=== PATIENT | female | born 1985 | race Hispanic/Latino ===

== ENCOUNTER 2018-09-02 07:30 | Inpatient (IN) | payer MEDICARE ==
[2018-09-02 09:29] LABS: Hematocrit 39.5 % (30.3-42.9); Hemoglobin 13.7 gm/dl (10.1-14.3); Mean Corpuscular HGB Conc 35 % (30-34); Mean Corpuscular Volume 83 fl (79-97); Platelet Count 201 K/mm3 (140-440); Red Blood Count 4.76 M/mm3 (3.65-5.03); Red Cell Distribution Width 15.4 % (13.2-15.2)
[2018-09-02 10:00] LABS: INR 0.91 (0.87-1.13)
[2018-09-02 10:01] LABS: BUN/Creatinine Ratio 21; Blood Urea Nitrogen 17 mg/dL (7-17); Hemolysis Index 9; Partial Thromboplastin Time 23.6 Sec. (24.2-36.6)
--- NOTE | 2018-09-02 10:37 | Emergency Department Report ---
ED General Adult HPI - General Chief complaint: Seizure Stated complaint: SEIZURE Time Seen by Provider: 09/02/18 08:22 Source: patient, EMS (ems notes not available at time of chart dictation), RN notes reviewed, old records reviewed Mode of arrival: Stretcher Limitations: No Limitations - History of Present Illness Initial comments: This is a 33-year-old female. The patient is not known to this provider previously. Her past medical history includes type 2 diabetes, seizures, reported urinary tract infection, questionable renal disorder, bipolar type I, and is currently on a psychiatric 1013. As per review of old medical records, the patient presented to a local psychiatric facility agitated and not stating why she was there. Patient insis maxine she does not know why she is at psychiatric Hospital. There is some admission of depression, however the patient denied homicidality and suicidality. She did present with delusions, such as people possibly assaulting her, questionable leaving , and she was found to be emotionally labile. At some point, she was noted to have endorse suicidality. The patient is sent to the emergency room today for seizure versus syncope. The patient was reportedly found down, next to a toilet, for uncertain duration of time, and uncertain mechanism. As per review of old medical records, patient was recently medically cleared, started on Macrodantin, given Flagyl, for presumed BV, and was transferred to a psychiatric facility. The patient is a very poor historian. She denies headache and neck pain. She complains of chest pain, central and bilateral intermittent wheezing for the past 2 days. The chest pain is described as aching and throbbing, does not radiate anywhere. The patient denies abdominal pain. The patient denies urinary symptoms. The patient denies focal extremity weakness, numbness. She believes that she may have had a seizure yesterday. She believes that she may have had a seizure the day before. She is not sure what medications she takes. Patient is asking to go home. -: Gradual, Sudden, days(s) Location: chest Radiation: non-radiation Consistency: other Improves with: other Worsens with: other - Related Data Allergies Allergy/AdvReac Type Severity Reaction Status Date / Time No Known Allergies Allergy Unverified 09/02/18 08:43 ED Review of Systems ROS: Stated complaint: SEIZURE Other details as noted in HPI Constitutional: denies: fever Eyes: denies: eye discharge ENT: denies: epistaxis Respiratory: denies: cough Cardiovascular: chest pain, syncope (? syncope patient is not sure) Gastrointestinal: denies: abdominal pain, nausea, vomiting Genitourinary: denies: dysuria Musculoskeletal: arthralgia, myalgia Skin: denies: lesions Neurological: other (seizure). denies: weakness Psychiatric: anxiety. denies: homicidal thoughts, suicidal thoughts ED Past Medical Hx - Past Medical History Previous Medical History?: Yes Hx Seizures: Yes Hx Psychiatric Treatment: Yes - Social History Smoking Status: Never Smoker Substance Use Type: None ED Physical Exam - General Limitations: No Limitations General appearance: alert, in no apparent distress, obese - Head Head exam: Present: atraumatic, normocephalic - Eye Eye exam: Present: normal appearance, PERRL, EOMI. Absent: nystagmus - ENT ENT exam: Present: normal exam, normal orophraynx, mucous membranes moist, normal external ear exam - Neck Neck exam: Present: normal inspection, full ROM. Absent: tenderness, meningismus - Respiratory Respiratory exam: Present: normal lung sounds bilaterally, chest wall tender ness. Absent: respiratory distress - Cardiovascular Cardiovascular Exam: Present: regular rate, normal rhythm, normal heart sounds. Absent: bradycardia, tachycardia, irregular rhythm, systolic murmur, diastolic murmur, rubs, gallop - GI/Abdominal GI/Abdominal exam: Present: soft. Absent: distended, tenderness, guarding, rebound, rigid, pulsatile mass - Extremities Exam Extremities exam: Present: normal inspection, full ROM, other (2+ pulses noted in the bilateral upper, lower extremities. Compartments soft. No long bony tenderness. The pelvis is stable.). Absent: tenderness, pedal edema, joint swelling, calf tenderness - Back Exam Back exam: Present: normal inspection, full ROM. Absent: tenderness, CVA tenderness (R), CVA tenderness (L), muscle spasm, paraspinal tenderness, vertebral tenderness - Neurological Exam Neurological exam: Present: alert, oriented X3, other (Extraocular movements intact. Tongue midline. No facial droop. Facial sensation intact to light touch in the V1, V2, V3 distribution bilaterally. 5 and 5 strength in 4 extremities.. Sensation is intact to light touch in 4 extremities.). Absent: motor sensory deficit - Psychiatric Psychiatric exam: Present: anxious - Skin Skin exam: Present: warm, dry, intact, normal color. Absent: rash ED Course Vital Signs 09/02/18 09/02/18 09/02/18 08:34 10:00 11:27 Temperature 98.5 F 98.5 F Pulse Rate 72 106 H 67 Respiratory 17 18 17 Rate Blood Pressure 132/66 Blood Pressure 131/86 126/64 [Right] O2 Sat by Pulse 100 100 100 Oximetry 09/02/18 12:00 Temperature Pulse Rate 117 H Respiratory 17 Rate Blood Pressure Blood Pressure 132/93 [Right] O2 Sat by Pulse 100 Oximetry - Reevaluation(s) Reevaluation #1: 09/02/18 10:37 Differential diagnosis, including but not limited to: Intracranial injury, cervical spine injury, seizure, syncope, orthostasis, vagal event, pulmonary embolus, structural cardiac disease, medication interaction, Assessment and plan: 33-year-old female sent to the emergency room for evaluation of possible seizure versus syncope. The patient is currently afebrile with reassuring vital signs, has resolved tachycardia, and has no pulmonary embolus or DVT risk factors and she is low risk by well's criteria. Tachycardia is reviewed and appreciated, maybe secondary to anxiety. Medication reconciliation has been requested. Patient found to have subtherapeutic valproic acid level. Patient will be loaded with valproic acid, and we will also load the patient with her Lamictal. Screening laboratory studies pending at this time. Given young age, and conversant of chest wall pain for 2 days, negative troponin 1, patient at low risk for major adverse cardiac event. Reevaluation #2: 09/02/18 12:[address] scan of the brain, cervical spine negative for acute disease. Nuclear medicine study is intermediate to high probability for pulmonary embolus. Nursing team unable to obtain 20-gauge IV access necessary for angiogram acquisition. This provider has examined the patient, and has not encountered any veins suitable for 20-gauge Angiocath. Therefore, we will go the patient empirically with Lovenox, and admitted the patient to the medical service for presumed pulmonary embolus versus breakthrough seizure. The [facility] physician is paced to arrange admission Reevaluation #3: 09/02/18 13:20 Dr Lito Estrada accepts ED Medical Decision Making - Lab Data Result diagrams: 09/02/18 09:05 09/02/18 09:05 Vital Signs 09/02/18 09/02/18 08:34 10:00 Temperature 98.5 F 98.5 F Pulse Rate 72 106 H Respiratory 17 18 Rate Blood Pressure 132/66 Blood Pressure 131/86 [Right] O2 Sat by Pulse 100 100 Oximetry Lab Results 09/02/18 09/02/18 09/02/18 Range/Units 09:05 09:05 09:05 WBC 9.2 (4.5-11.0) K/mm3 RBC 4.76 (3.65-5.03) M/mm3 Hgb 13.7 (10.1-14.3) gm/dl Hct 39.5 (30.3-42.9) % MCV 83 (79-97) fl MCH 29 (28-32) pg MCHC 35 H (30-34) % RDW 15.4 H (13.2-15.2) % Plt Count 201 (140-440) K/mm3 PT 12.8 (12.2-14.9) Sec. INR 0.91 (0.87-1.13) APTT 23.6 L (24.2-36.6) Sec. D-Dimer 250.67 H (0-234) ng/mlDDU Sodium 139 (137-145) mmol/L Potassium 4.7 (3.6-5.0) mmol/L Chloride 96.5 L (98-107) mmol/L Carbon Dioxide 29 (22-30) mmol/L Anion Gap 18 mmol/L BUN 17 (7-17) mg/dL Creatinine 0.8 (0.7-1.2) mg/dL Estimated GFR > 60 ml/min BUN/Creatinine Ratio 21 % Glucose 189 H (65-100) mg/dL Calcium 9.0 (8.4-10.2) mg/dL Magnesium 1.80 (1.7-2.3) mg/dL Troponin T < 0.010 (0.00-0.029) ng/mL HCG, Quant (0-4) mIU/mL Valproic Acid (50-100) ug/mL 09/02/18 09/02/18 Range/Units 09:05 09:05 WBC (4.5-11.0) K/mm3 RBC (3.65-5.03) M/mm3 Hgb (10.1-14.3) gm/dl Hct (30.3-42.9) % MCV (79-97) fl MCH (28-32) pg MCHC (30-34) % RDW (13.2-15.2) % Plt Count (140-440) K/mm3 PT (12.2-14.9) Sec. INR (0.87-1.13) APTT (24.2-36.6) Sec. D-Dimer (0-234) ng/mlDDU Sodium (137-145) mmol/L Potassium (3.6-5.0) mmol/L Chloride (98-107) mmol/L Carbon Dioxide (22-30) mmol/L Anion Gap mmol/L BUN (7-17) mg/dL Creatinine (0.7-1.2) mg/dL Estimated GFR ml/min BUN/Creatinine Ratio % Glucose (65-100) mg/dL Calcium (8.4-10.2) mg/dL Magnesium (1.7-2.3) mg/dL Troponin T (0.00-0.029) ng/mL HCG, Quant < 2 (0-4) mIU/mL Valproic Acid 45.1 L (50-100) ug/mL - EKG Data -: EKG Interpreted by Me EKG shows normal: sinus rhythm Rate: tachycardia - EKG Data 09/02/18 10:39 EKG #1 shows a sinus tachycardia, 109 beats a minute, normal axis, QTC prolonged, abnormal EKG, no prior for comparison, this EKG is not consistent with ST elevation myocardial infarction. - Radiology Data Radiology results: pending Critical care attestation.: If time is entered above; I have spent that time in minutes in the direct care of this critically ill patient, excluding procedure time. ED Disposition Clinical Impression: Chest pain, On valproic acid therapy, Seizure Disposition: DC-09 OP ADMIT IP TO THIS HOSP Is pt being admited?: Yes Does the pt Need Aspirin: Yes Condition: Stable Instructions: Chest Pain (ED) Referrals: JULIO ARAUJO [Other] - 3-5 Days
[2018-09-02] MEDS ORDERED: LaMICtal PO ONE (10:40)
--- NOTE | 2018-09-02 10:56 | XRay Report ---
ROUTINE CHEST, TWO VIEWS: HISTORY: chest pain. The trachea, heart, mediastinal contour, lung tinoco and bony thorax are unremarkable. IMPRESSION: Unremarkable chest x-ray.
[2018-09-02] MEDS ORDERED: DepaCON 1,000 MG in NACL 0.9% 100 ML IV ONE (11:00)
--- NOTE | 2018-09-02 11:18 | Cat Scan Report ---
CT HEAD WITHOUT CONTRAST: HISTORY: Seizure, syncope. TECHNIQUE: Sequential 2.5mm CT images. COMPARISON: none. FINDINGS: Cerebral Parenchyma: Within normal limits. Cerebellum: Within normal limits. Brainstem: Within normal limits. Ventricles: Normal. Sella: Normal. Extra-axial spaces: Normal. Basal Cisterns: Normal. Intracranial Hemorrhage: None. Midline Shift: None. Calvarium: Normal. Sinuses: Normal. Mastoid Air Cells: Normal. Visualized Orbits: Normal. IMPRESSION: Cranial CT scan within normal limits.
--- NOTE | 2018-09-02 11:19 | Cat Scan Report ---
CT SCAN OF THE CERVICAL SPINE: HISTORY: Seizure, syncope. TECHNIQUE: Contiguous 1.25 mm axial images of the cervical spine were obtained. Sagittal and coronal reformatted images. FINDINGS: There is normal alignment of the cervical spine. The body, pedicles and posterior ligaments are intact. A bridging anterior osteophyte is at C5-6. No evidence of fracture or subluxation is seen. The spinal canal appears normal. The prevertebral soft tissues appear normal. IMPRESSION: No acute process is noted.
[2018-09-02] MEDS ORDERED: LOVENOX SUB-Q STA (11:57)
[2018-09-02] MEDS ORDERED: NACL 0.9% 500 ML 500 ML IV ONE (11:57)
--- NOTE | 2018-09-02 11:58 | Nuclear Medicine Report ---
LUNG SCAN, VENTILATION AND PERFUSION: History: chest pain. Technique: 5mci of Tc99m MAA was infused for the perfusion images. 15mci XE 133 gas was inhaled for the ventilatory images. Correlation is made with a chest x-ray dated 09/02/18. Findings: Inhalation of Xenon gas demonstrates a normal distribution of the activity throughout both lungs. The wash out phases show no focal retention of activity. After injection of Technetium 99m macroaggregated albumin gamma camera imaging of the lungs in multiple projections demonstrates Suspicious mismatched perfusion defects in the superior lingula and posterior right upper lobe. IMPRESSION: Intermediate to high probability of pulmonary embolus. These findings were discussed with Dr. Sherman in the emergency department at 1152 hrs.
[2018-09-02 12:50] LABS: Bacteria,Urine 1+ /HPF (Negative); Bilirubin,Urine NEG (Negative); Blood,Urine NEG (Negative); Color,Urine Yellow (Yellow); Mucus,Urine FEW /HPF; Urobilinogen,Urine < 2.0 mg/dL (<2.0)
--- NOTE | 2018-09-02 20:48 | History and Physical Report ---
History of Present Illness Date of examination: 09/02/18 Date of admission: 09/02/18 13:21 Chief complaint: Passed out in a psych facility 3 hours ago History of present illness: 33-year-old female, obese with history of seizures and psychiatric problems and sent from psych Facility for passing out. Questionable seizures. Patient has history of type 2 diabetes and seizures and recent urinary tract infection. Patient was admitted as a local psychiatric facility for depression and delusions. Delusions involved people possibly assaulting her and q uestionably leaving and she was found to be emotionally labile. No shortness of breath. No chest pain. Patient was on Macrobid and Flagyl recently for urinary tract infection and bacterial vaginosis. Patient is on 1013 even though there is no suicidal or homicidal intent. Workup in the emergency room revealed medium to high probability PE. Past Medical History Previous Medical History?: Yes Hx Seizures: Yes Hx Psychiatric Treatment: Yes Surgical history kidney stone removal, right ankle surgery with a plate insertion, tonsillectomy and adenoidectomy. Family history HTN Social History Smoking Status: Never Smoker Substance Use Type: None Review of Systems ROS: Stated complaint: SEIZURE Other details as noted in HPI Constitutional: denies: fever Eyes: denies: eye discharge ENT: denies: epistaxis Respiratory: denies: cough Cardiovascular: chest pain, syncope (? syncope patient is not sure) Gastrointestinal: denies: abdominal pain, nausea, vomiting Genitourinary: denies: dysuria Musculoskeletal: arthralgia, myalgia Skin: denies: lesions Neurological: other (seizure). denies: weakness Psychiatric: anxiety. denies: homicidal thoughts, suicidal thoughts Medications and Allergies Allergies Allergy/AdvReac Type Severity Reaction Status Date / Time No Known Allergies Allergy Unverified 09/02/18 08:43 Home Medications Medication Instructions Recorded Confirmed Last Taken Type Benztropine [Cogentin] 2 mg PO BID 09/02/18 09/02/18 Unknown History Divalproex [DepaKOTE DR] 500 mg PO BID 09/02/18 09/02/18 Unknown History Insulin Regular, Human [HumuLIN R] 0 unit SQ ACHS 09/02/18 09/02/18 Unknown History LORazepam [Ativan] 1 mg PO TID PRN 09/02/18 09/02/18 Unknown History Nitrofurantoin [place]/M-Cryst 100 mg PO Q12HR 09/02/18 09/02/18 Unknown History [Macrobid CAP] PARoxetine [Paxil] 20 mg PO DAILY 09/02/18 09/02/18 Unknown History Quetiapine Fumarate [Seroquel Xr] 200 mg PO QHS 09/02/18 09/02/18 Unknown History Simvastatin 20 mg PO QHS 09/02/18 09/02/18 Unknown History metroNIDAZOLE [Flagyl] 500 mg PO Q12HR 09/02/18 09/02/18 Unknown History Exam - Constitutional Vitals: Temp Pulse Resp BP Pulse Ox 98.1 F 109 H 18 127/86 97 09/02/18 17:48 09/02/18 20:00 09/02/18 20:00 09/02/18 20:00 09/02/18 20:00 General appearance: Present: no acute distress, well-nourished - EENT Eyes: Present: PERRL ENT: hearing intact, clear oral mucosa - Neck Neck: Present: supple, normal ROM - Respiratory Respiratory effort: normal Respiratory: bilateral: CTA - Cardiovascular Heart rate: 108 Rhythm: regular Heart Sounds: Present: S1 & S2. Absent: rub, click - Extremities Extremities: pulses symmetrical, No edema Peripheral Pulses: within normal limits - Abdominal General gastrointestinal: Present: soft, non-tender, non-distended, normal bowel sounds Female genitourinary: Present: normal - Rectal Rectal Exam: deferred - Integumentary Integumentary: Present: clear, warm, dry - Musculoskeletal Musculoskeletal: gait normal, strength equal bilaterally - Psychiatric Psychiatric: appropriate mood/affect, intact judgment & insight - Neurologic Neurologic: CNII-XII intact, moves all extremities - Allied Health Allied health notes reviewed: nursing, case management Results - Labs CBC & Chem 7: 09/02/18 09:05 09/02/18 09:05 Labs: Laboratory Last Values WBC 9.2 K/mm3 (4.5-11.0) 09/02/18 09:05 RBC 4.76 M/mm3 (3.65-5.03) 09/02/18 09:05 Hgb 13.7 gm/dl (10.1-14.3) 09/02/18 09:05 Hct 39.5 % (30.3-42.9) 09/02/18 09:05 MCV 83 fl (79-97) 09/02/18 09:05 MCH 29 pg (28-32) 09/02/18 09:05 MCHC 35 % (30-34) H 09/02/18 09:05 RDW 15.4 % (13.2-15.2) H 09/02/18 09:05 Plt Count 201 K/mm3 (140-440) 09/02/18 09:05 PT 12.8 Sec. (12.2-14.9) 09/02/18 09:05 INR 0.91 (0.87-1.13) 09/02/18 09:05 APTT 23.6 Sec. (24.2-36.6) L 09/02/18 09:05 250.67 ng/mlDDU (0-234) H 09/02/18 09:05 Sodium 139 mmol/L (137-145) 09/02/18 09:05 Potassium 4.7 mmol/L (3.6-5.0) 09/02/18 09:05 Chloride 96.5 mmol/L (98-107) L 09/02/18 09:05 Carbon Dioxide 29 mmol/L (22-30) 09/02/18 09:05 18 mmol/L 09/02/18 09:05 BUN 17 mg/dL (7-17) 09/02/18 09:05 0.8 mg/dL (0.7-1.2) 09/02/18 09:05 Estimated GFR > 60 ml/min 09/02/18 09:05 21 % 09/02/18 09:05 Glucose 189 mg/dL (65-100) H 09/02/18 09:05 Calcium 9.0 mg/dL (8.4-10.2) 09/02/18 09:05 Magnesium 1.80 mg/dL (1.7-2.3) 09/02/18 09:05 < 0.010 ng/mL (0.00-0.029) 09/02/18 11:51 HCG, Quant < 2 mIU/mL (0-4) 09/02/18 09:05 Yellow (Yellow) 09/02/18 12:02 Slightly-cloudy (Clear) 09/02/18 12:02 8.0 (5.0-7.0) H 09/02/18 12:02 Ur Specific [place] 1.015 (1.003-1.030) 09/02/18 12:02 30 mg/dl mg/dL (Negative) 09/02/18 12:02 Neg mg/dL (Negative) 09/02/18 12:02 Neg mg/dL (Negative) 09/02/18 12:02 Neg (Negative) 09/02/18 12:02 Neg (Negative) 09/02/18 12:02 Neg (Negative) 09/02/18 12:02 < 2.0 mg/dL (<2.0) 09/02/18 12:02 Ur Leukocyte Esterase Tr (Negative) 09/02/18 12:02 2.0 /HPF (0.0-6.0) 09/02/18 12:02 1.0 /HPF (0.0-6.0) 09/02/18 12:02 U Epithel Cells (Auto) 17.0 /HPF (0-13.0) H 09/02/18 12:02 1+ /HPF (Negative) 09/02/18 12:02 Few /HPF 09/02/18 12:02 Valproic Acid 45.1 ug/mL (50-100) L 09/02/18 09:05 - Imaging and Cardiology EKG: report reviewed (sinus tachycardia heart rate of 109/m) Chest x-ray: report reviewed (NAF) CT Scan - head: report reviewed (no acute findings) Imaging and Cardiology: V/q Scan IMPRESSION: Intermediate to high probability of pulmonary embolus. These findings were discussed with Dr. Sherman in the emergency department [place] [address] C-spine IMPRESSION: No acute process is noted Assessment and Plan Advance Directives: Yes (full code) VTE prophylaxis?: Chemical Plan of care discussed with patient/family: Yes - Patient Problems (1) Acute pulmonary embolism Current Visit: Yes Status: Acute Qualifiers: Acute cor pulmonale presence: without acute cor pulmonale Plan to address problem: Medium to high voltage on VQ scan We will get a CT angiogram Lovenox 100 mg subcutaneous every 12 started Will defer to primary team regarding anticoagulation--- Coumadin versus ELIQUIS (2) Syncope Current Visit: Yes Status: Chronic Qualifiers: Syncope type: unspecified Qualified Code(s): R55 - Syncope and collapse Plan to address problem: Syncope workup Carotid duplex scan Echocardiogram ordered. No need for stress test (3) Seizure disorder Current Visit: Yes Status: Chronic Plan to address problem: Patient is noncompliant Patient to be switched to Keppra 750 mg every 12 Discontinue valproic acid Patient counseled about compliance (4) Psychosis Current Visit: Yes Status: Chronic Qualifiers: Schizoaffective disorder type: unspecified Plan to address problem: Mental health consult requested (5) DVT prophylaxis Current Visit: Yes Status: Acute Plan to address problem: Patient already on Lovenox GI prophylaxis initiated
[2018-09-02] MEDS ORDERED: ZOFRAN IV PRN (21:22)
[2018-09-02] MEDS ORDERED: TYLENOL PO PRN (21:22)
[2018-09-02] MEDS ORDERED: PERCOCET 5/325 PO PRN (21:22)
[2018-09-02] MEDS ORDERED: SODIUM CHLORIDE FLUSH SYRINGE 10 ML IV PRN (21:22)
[2018-09-02] MEDS ORDERED: DILAUDID IV PRN (21:22)
[2018-09-02] MEDS ORDERED: ATIVAN PO PRN (21:28)
[2018-09-02] MEDS ORDERED: NACL 0.9% 1000 ML 1,000 ML IV SCH (22:00)
[2018-09-02] MEDS ORDERED: NON-FORMULARY (Quetiapine Fumarate [Seroquel Xr] 200 MG) PO SCH (22:00)
[2018-09-02] MEDS ORDERED: LOVENOX SUB-Q SCH (22:00)
[2018-09-02] MEDS ORDERED: NON-FORMULARY (Simvastatin [Simvastatin] 20 MG) PO SCH (22:00)
[2018-09-02] MEDS ORDERED: COGENTIN ONE (22:06)
[2018-09-02] MEDS ORDERED: LOVENOX SUB-Q ONE (22:06)
[2018-09-02] MEDS ORDERED: PEPCID IV ONE (22:07)
[2018-09-02] MEDS: PEPCID IV SCH (22:31)
[2018-09-02] MEDS: COGENTIN PO SCH (22:31)
[2018-09-02] MEDS: HumaLOG SUB-Q SCH (22:35)
[2018-09-02] MEDS: SODIUM CHLORIDE FLUSH SYRINGE 10 ML IV SCH (23:20)
[2018-09-02] MEDS: KEPPRA 750 MG in D5W 100 ML IV SCH (23:20)
[2018-09-02] MEDS: PRAVACHOL PO SCH (23:20)
[2018-09-03] MEDS: COGENTIN PO SCH (09:07)
[2018-09-03] MEDS: PEPCID IV SCH (09:07)
[2018-09-03] MEDS: KEPPRA 750 MG in D5W 100 ML IV SCH ×2 (09:07→22:00)
[2018-09-03] MEDS: HumaLOG SUB-Q SCH ×4 (09:07→22:00)
[2018-09-03] MEDS: SODIUM CHLORIDE FLUSH SYRINGE 10 ML IV SCH ×2 (09:07→22:30)
[2018-09-03 09:59] LABS: Hematocrit TNR % (30.3-42.9); Hemoglobin TNR gm/dl (10.1-14.3); Mean Corpuscular HGB Conc TNR % (30-34); Mean Corpuscular Volume TNR fl (79-97); Mean Platelet Volume TNR fl (6-12); Platelet Count TNR K/mm3 (140-440); Red Blood Count TNR M/mm3 (3.65-5.03); Red Cell Distribution Width TNR % (13.2-15.2)
[2018-09-03 10:00] LABS: Basophils # (Auto) TNR K/mm3 (0.0-0.1); Basophils % (Auto) TNR % (0.0-1.8); Eosinophils # (Auto) TNR K/mm3 (0.0-0.4); Eosinophils % (Auto) TNR % (0.0-4.3); Lymphocytes # (Auto) TNR K/mm3 (1.2-5.4); Lymphocytes % (Auto) TNR % (13.4-35.0); Monocytes # (Auto) TNR K/mm3 (0.0-0.8); Monocytes % (Auto) TNR % (0.0-7.3)
[2018-09-03] MEDS ORDERED: PAXIL PO SCH (10:00)
[2018-09-03] MEDS ORDERED: LOVENOX SUB-Q SCH (10:00)
[2018-09-03 10:16] LABS: Alanine Aminotransferase 11 units/L (7-56); BUN/Creatinine Ratio 17; Blood Urea Nitrogen 12 mg/dL (7-17); Calcium 8.4 mg/dL (8.4-10.2); Hemolysis Index 54
--- NOTE | 2018-09-03 12:24 | Consultation ---
History of Present Illness - Reason for Consult Consult date: 09/03/18 Reason for consult: Mental Health Evaluation Requesting physician: MARTHA MACKENZIE - Chief Complaint Chief complaint: "'I'm well" - History of Present Psychiatric Illness 33 y.o. white female who presented to the ER from [facility] for seizure vs syncope episodes. Psychiatry was consulted to see the patient. Today the patient was calm and cooperative during the assessment. She stated that she has a hx of bipolar do and take Seroquel. She was asked about her inpatient stay at [facility], she stated, "It was for depression." She stated that she reside with her mother Annabelle, but do not have a psychiatrist for outpatient psy services. She denies SI/HI's and AVH's. She denies erratic sleep and a poor appetite. She de nies recreational drug use and alcohol consumption 9etoh). Per the notes, no behavioral disturbances by the patient since her arrival to the ER. Medications and Allergies Allergies Allergy/AdvReac Type Severity Reaction Status Date / Time No Known Allergies Allergy Unverified 09/02/18 08:43 Home Medications Medication Instructions Recorded Confirmed Last Taken Type Benztropine [Cogentin] 2 mg PO BID 09/02/18 09/02/[address] [DepaKOTE DR] 500 mg PO BID 09/02/18 09/02/18 Unknown History Insulin Regular, Human [HumuLIN R] 0 unit SQ ACHS 09/02/18 09/02/18 Unknown History LORazepam [Ativan] 1 mg PO TID PRN 09/02/18 09/02/18 Unknown History Nitrofurantoin Richardson/M-Cryst 100 mg PO Q12HR 09/02/18 09/02/18 Unknown History [Macrobid CAP] PARoxetine [Paxil] 20 mg PO DAILY 09/02/18 09/02/18 Unknown History Quetiapine Fumarate [Seroquel Xr] 200 mg PO QHS 09/02/18 09/02/18 Unknown History Simvastatin 20 mg PO QHS 09/02/18 09/02/18 Unknown History metroNIDAZOLE [Flagyl] 500 mg PO Q12HR 09/02/18 09/02/18 Unknown History Active Meds: Active Medications Acetaminophen (Tylenol) 650 mg PO Q4H PRN PRN Reason: Pain MILD(1-3)/Fever >100.5/RAMÍREZ Benztropine Mesylate (Cogentin) 0.5 mg PO HS ANGELA Enoxaparin Sodium (Lovenox) 100 mg SUB-Q Q12HR [facility] Famotidine (Pepcid) 20 mg PO BID ANGELA Hydromorphone HCl (Dilaudid) 0.5 mg IV Q3H PRN PRN Reason: Pain , Severe (7-10) Sodium Chloride (Nacl 0.9% 1000 Ml) 1,000 mls @ 75 mls/hr IV DIRECT [facility] Last Admin: 09/03/18 05:25 Dose: 75 mls/hr Documented by: Levetiracetam 750 mg/ Dextrose 107.5 mls @ 400 mls/hr IV Q12HR [facility] Stop: 09/03/18 23:59 Last Admin: 09/03/18 09:07 Dose: 400 mls/hr Documented by: Insulin Human Lispro (Humalog) 0 unit SUB-Q ACHS [facility]; Protocol Last Admin: 09/03/18 09:07 Dose: Not Given Documented by: Levetiracetam (Keppra) 750 mg PO BID [facility] Lorazepam (Ativan) 1 mg PO TID PRN PRN Reason: Anxiety Ondansetron HCl (Zofran) 4 mg IV Q8H PRN PRN Reason: Nausea And Vomiting Oxycodone/Acetaminophen (Percocet 5/325) 1 tab PO Q6H PRN PRN Reason: Pain, Moderate (4-6) Pravastatin Sodium (Pravachol) 40 mg PO QHS [facility] Last Admin: 09/02/18 23:20 Dose: 40 mg Documented by: Quetiapine Fumarate (Seroquel) 200 mg PO QHS [facility] Last Admin: 09/02/18 22:31 Dose: 200 mg Documented by: Sodium Chloride (Sodium Chloride Flush Syringe 10 Ml) 10 ml IV BID [facility] Last Admin: 09/03/18 09:07 Dose: 10 ml Documented by: Sodium Chloride (Sodium Chloride Flush Syringe 10 Ml) 10 ml IV PRN PRN PRN Reason: LINE FLUSH Past psychiatric history - Past Medical History Past Medical History: seizures Past Surgical History: No surgical history - past Psychiatric treatment and history psychiatric treatment history: Hx of bipolar DO per the patient. Denies a fam psy hx. - Social History Social history: lives with family Mental Status Exam - Vital signs Last Vital Signs Temp 97.8 F 09/03/18 07:57 Pulse 100 H 09/03/18 05:00 Resp 18 09/03/18 07:57 BP 112/86 09/03/18 07:57 Pulse Ox 95 09/03/18 04:12 - Exam Narrative exam: MSE: Appearance: calm, cooperative Behavior: regular eye contact Speech: regular r ate and tone Mood: "okay" Affect: congruent to mood Thought Process: linear Thought Content: denies SI/HI's and AVH's Motor Activity: sitting up in bed Cognition: A/O x3 Insight: fair Judgment: fair Results Result Diagrams: 09/03/18 08:54 09/03/18 08:54 Abnormal lab results 09/02/18 09/02/18 09/02/18 Range/Units 12:02 21:46 22:30 Glucose (65-100) mg/dL POC Glucose 147 H (70-105) Hemoglobin A1c 6.4 H (4-6) % Total Protein (6.3-8.2) g/dL Albumin (3.9-5) g/dL Urine pH 8.0 H (5.0-7.0) U Epithel Cells (Auto) 17.0 H (0-13.0) /HPF 09/03/18 09/03/18 09/03/18 Range/Units 07:49 08:54 12:10 Glucose 156 H (65-100) mg/dL POC Glucose 143 H 211 H (70-105) Hemoglobin A1c (4-6) % Total Protein 5.7 L (6.3-8.2) g/dL Albumin 3.0 L (3.9-5) g/dL Urine pH (5.0-7.0) U Epithel Cells (Auto) (0-13.0) /HPF All other labs normal. Assessment and Plan Assessment and plan: Impression: Hx of Bipolar DO. Today the patient was calm and cooperative during the assessment. Per the patient's chart on the floor, she was a voluntary patient at [facility] prior to her arrival to the ER. Recommendation/Plan: Continue Seroquel 200 mg PO HS for mood and modified cogentin to 0.5 mg PO HS for EPS prevention. Hold Paxil due to possible mood destabilization associated with bipolar disorder. Discussed possible metabolic side effects of Seroquel with the patient, she verbalized understanding. Psy sign off. Dispo: The patient can follow up [facility] for outpatient psy services. Will staff with Dr Zahida Gonsalves.
--- NOTE | 2018-09-03 15:20 | Progress Note ---
Assessment and Plan /Acute pulmonary embolism Medium to high voltage on VQ scan We will get a CT angiogram Lovenox 100 mg subcutaneous every 12 started Will change to ELIQUIS if CTA chest positive for PE / Syncope Syncope workup Carotid duplex scan Echocardiogram ordered. No need for stress test /Seizure disorder Patient is noncompliant Patient to be switched to Keppra 750 mg every 12 Discontinue valproic acid Patient counseled about compliance / Psychosis Plan to address problem: Mental health consult requested Other chronic issues: Bipolar disorder--- on Seroquel Depression------ on Paxil Hyperlipidemia--- on simvastatin T2DM--- insulin coverage for now, check hemoglobin A1c DVT prophylaxis, Patient already on Lovenox GI prophylaxis initiated Brief History: 33-year-old female obese with history of seizures and psychiatric problems and sent from psych Facility for passing out and Questionable seizures. Patient was on Macrobid and Flagyl recently for urinary tract infection and bacterial vaginosis. Patient is on 1013 even though there is no suicidal or homicidal intent. Workup in the emergency room revealed medium to high probability PE. Radiological data: VQ scan: Medium probability for PE Hospitalist Physical exam: GENERAL: well-developed obese white female lying on bed appeared to be in no discomfort. HEENT: Normocephalic. Atraumatic. No conjunctival congestion or icterus. Patient has moist mucous membranes. NECK: Supple. Trachea midline. CHEST/LUNGS: Clear to auscultated bilaterally, breathing nonlabored. No wheezes crackles or rhonchi. HEART/CARDIOVASCULAR: Regular in rate and rhythm. S1 and S2 positive. ABDOMEN: Abdomen is soft, nontender. Patient has normal bowel sounds. SKIN: There is no rash. Warm and dry. NEURO: No focal motor deficit. Follows command. MUSCULOSKELETAL: No joint effusion or tenderness. EXTRIMITY: No edema, no cyanosis or clubbing. PSYCH: Cooperative. Subjective Date of service: 09/03/18 Interval history: Patient seen and examined. Medical records and medication list reviewed. No acute event overnight noted by the RN. Patient denies any chest pain or difficulty breathing. Patient is tolerating diet. Discussed plan of care at bedside with patient. Objective - Constitutional Vitals: Vital Signs - 12hr 09/03/18 09/03/18 09/03/18 04:12 05:00 07:57 Temperature 97.6 F 97.8 F Pulse Rate 100 H 100 H Respiratory 17 18 Rate Blood Pressure 101/70 112/86 O2 Sat by Pulse 95 Oximetry 09/03/18 12:07 Temperature 98.0 F Pulse Rate Respiratory 18 Rate Blood Pressure 124/94 O2 Sat by Pulse Oximetry - Labs CBC & Chem 7: 09/03/18 08:54 09/03/18 08:54 Labs: Abnormal lab results 09/02/18 09/02/18 09/03/18 Range/Units 21:46 22:30 07:49 Glucose (65-100) mg/dL POC Glucose 147 H 143 H (70-105) Hemoglobin A1c 6.4 H (4-6) % Total Protein (6.3-8.2) g/dL Albumin (3.9-5) g/dL 09/03/18 09/03/18 Range/Units 08:54 12:10 Glucose 156 H (65-100) mg/dL POC Glucose 211 H (70-105) Hemoglobin A1c (4-6) % Total Protein 5.7 L (6.3-8.2) g/dL Albumin 3.0 L (3.9-5) g/dL
[2018-09-03] MEDS ORDERED: COGENTIN PO SCH (22:00)
[2018-09-03] MEDS: LOVENOX SUB-Q SCH (22:00)
[2018-09-03] MEDS: PEPCID PO SCH (22:30)
[2018-09-03] MEDS: PRAVACHOL PO SCH (22:30)
[2018-09-04] MEDS: LOVENOX SUB-Q SCH (09:45)
[2018-09-04] MEDS: SODIUM CHLORIDE FLUSH SYRINGE 10 ML IV SCH (09:46)
[2018-09-04] MEDS: HumaLOG SUB-Q SCH (09:46)
[2018-09-04] MEDS: PEPCID PO SCH (09:46)
[2018-09-04] MEDS ORDERED: KEPPRA PO SCH (10:00)
--- NOTE | 2018-09-04 17:10 | Progress Note ---
Assessment and Plan /Acute pulmonary embolism Medium to high voltage on VQ scan We will get a CT angiogram Lovenox 100 mg subcutaneous every 12 started Will change to ELIQUIS if CTA chest positive for PE / Syncope Syncope workup Carotid duplex scan Echocardiogram ordered. No need for stress test /Seizure disorder Patient is noncompliant Patient to be switched to Keppra 750 mg every 12 Discontinue valproic acid Patient counseled about compliance / Psychosis Plan to address problem: Mental health consult requested Other chronic issues: Bipolar disorder--- on Seroquel Depression------ on Paxil Hyperlipidemia--- on simvastatin T2DM--- insulin coverage for now, check hemoglobin A1c DVT prophylaxis, Patient already on Lovenox GI prophylaxis initiated Brief History: 33-year-old female obese with history of seizures and psychiatric problems and sent from psych Facility for passing out and Questionable seizures. Patient was on Macrobid and Flagyl recently for urinary tract infection and bacterial vaginosis. Patient is on 1013 even though there is no suicidal or homicidal intent. Workup in the emergency room revealed medium to high probability PE. Radiological data: VQ scan: Medium probability for PE Hospitalist Physical exam: GENERAL: well-developed obese white female lying on bed appeared to be in no discomfort. HEENT: Normocephalic. Atraumatic. No conjunctival congestion or icterus. Patient has moist mucous membranes. NECK: Supple. Trachea midline. CHEST/LUNGS: Clear to auscultated bilaterally, breathing nonlabored. No wheezes crackles or rhonchi. HEART/CARDIOVASCULAR: Regular in rate and rhythm. S1 and S2 positive. ABDOMEN: Abdomen is soft, nontender. Patient has normal bowel sounds. SKIN: There is no rash. Warm and dry. NEURO: No focal motor deficit. Follows command. MUSCULOSKELETAL: No joint effusion or tenderness. EXTRIMITY: No edema, no cyanosis or clubbing. PSYCH: Cooperative. Subjective Date of service: 09/04/18 Interval history: Patient seen and examined. Medical records and medication list reviewed. No acute event overnight noted by the RN. Patient denies any chest pain or difficulty breathing. Patient is tolerating diet. Discussed plan of care at bedside with patient. Objective - Constitutional Vitals: Vital Signs - 12hr 09/04/18 09/04/18 08:55 14:03 Temperature 97.6 F 98.1 F Pulse Rate 99 H 115 H Respiratory 18 16 Rate Blood Pressure 143/99 122/76 O2 Sat by Pulse 98 98 Oximetry - Labs CBC & Chem 7: 09/03/18 08:54 09/03/18 08:54 Labs: Abnormal lab results 09/03/18 09/04/18 09/04/18 Range/Units 21:18 07:40 12:51 POC Glucose 211 H 290 H 151 H (70-105) 09/04/18 Range/Units 16:47 POC Glucose 173 H (70-105)
--- NOTE | 2018-09-04 19:06 | Cat Scan Report ---
PROCEDURE: CT ANGIO CHEST TECHNIQUE: Computerized tomographic angiography of the chest was performed during the IV injection o f iodinated nonionic contrast including image processing. The image data was postprocessed using 2-d imensional multiplanar reformatted (MPR) and 3-dimensional (MIP and/or volume rendered) techniques. A utomated exposure control, adjustment of mA and/or kV according to patient size, or iterative reconst ruction dose optimization techniques were utilized. CT DOSE LENGTH PRODUCT: 1003 mGycm HISTORY: PE/syncope COMPARISONS: None . FINDINGS: Pulmonary out flow tract, right and left main pulmonary arteries and the approximal branches: Clear, no filling defects seen to suggest pulmonary embolus. Pericardium: No evidence of pericardial effusion. Thoracic aorta: No evidence of aneurysmal dilatation or dissection. Coronary arteries: Unremarkable. Mediastinum and hilar regions: Non specific subcentimeter lymph nodes are visualized. No pathologica lly enlarged lymph nodes or masses are identified. Lung [place]: Linear densities of increased density are seen in both lower lobes also in the right upp er lobe suggesting small parenchymal scars or bands of atelectasis. No dense consolidations are seen. No effusions are identified. Nonspecific hazy groundglass densities are visualized bilaterally. Upper abdomen: There appears to be mild irregular thinning of the renal cortex of the left kidney linder ggesting atrophy and/or scarring. Entire left kidney is not visualized. Other: No acute bone abnormalities are identified. IMPRESSION: No evidence of pulmonary embolus. Minimal linear bands of scarring or atelectasis seen in the lung tinoco as described. There are also nonspecific hazy groundglass densities without dense consolidations or effusions. There is mild irregular thinning of the renal cortex of the left kidney compared to the right. There may be mild atrophy and/or scarring. The entire left kidney is not included. This document is electronically signed by Alec Bradford MD., September 04 2018 07:04:24 PM ET
[2018-09-04 19:40] VITALS: BP 151/100
--- NOTE | 2018-09-04 20:05 | Discharge Summary ---
Providers - Providers Date of Admission: 09/02/18 13:21 Date of discharge: 09/04/18 Attending physician: LILY ANTHONY 09/02/18 Consult to Case Management [CONS] Routine Services Needed at Discharge: Repairer Shoe Sticks Notified:: case management 09/02/18 12:56 Consult to Mental Health [CONS] Urgent Reason For Exam: psych Place consult to:: marketing communication manager organizational development consultant Notified:: awaiting call back 09/02/18 21:28 Consult to Mental Health [CONS] Routine Reason For Exam: history of psychiatric problems with delusions Place consult to:: Mental Health Notified:: Parris ASHBY Comment:: mental health is aware of consult Primary care physician: VAN KIM MD Hospitalization Condition: Stable Hospital course: Brief History: 33-year-old female obese with history of seizures, bipolar and depression sent from psych Facility for passing out and Questionable seizures. Patient was on Macrobid and Flagyl recently for urinary tract infection and bacterial vaginosis. Patient was on 1013 even though there is no suicidal or homicidal intent. Workup in the emergency room revealed medium to high probability PE, valproic acid level was low. Patient was placed on lovenox therapeutic dose, changed valproic acid to keppra iv. Further workup with CTA chest showed no PE. Patient was then discharged home in stable condition. Radiological data: VQ scan: Medium probability for PE CTA chest : No PE CT head- no acute change Cervical spine CT: no fracture 2d echo: preserved EF Discharge diagnosis: /Acute pulmonary embolism - ruled out Medium to high voltage on VQ scan but CT angiogram chest showed no PE s/p Lovenox 100 mg subcutaneous every 12h initially given then discontinued / Syncope likely from seizure, no acute change on CT head Echocardiogram showed preserved EF, no chest pain no SOB No need for stress test /Seizure disorder Patient is noncompliant Patient was switched to Keppra 750 mg every 12h Discontinued valproic acid Patient counseled about compliance / Psychosis, Mental health consult requested, medication adjusted, will do further followup outpt Other chronic issues: Bipolar disorder--- on Seroquel Depression------ on Paxil Hyperlipidemia--- on simvastatin T2DM--- insulin coverage for now, check hemoglobin A1c DVT prophylaxis, Patient already on Lovenox GI prophylaxis initiated Hospitalist Physical exam: GENERAL: well-developed obese white female lying on bed appeared to be in no discomfort. HEENT: Normocephalic. Atraumatic. No conjunctival congestion or icterus. Patient has moist mucous membranes. NECK: Supple. Trachea midline. CHEST/LUNGS: Clear to auscultated bilaterally, breathing nonlabored. No wheezes crackles or rhonchi. HEART/CARDIOVASCULAR: Regular in rate and rhythm. S1 and S2 positive. ABDOMEN: Abdomen is soft, nontender. Patient has normal bowel sounds. SKIN: There is no rash. Warm and dry. NEURO: No focal motor deficit. Follows command. MUSCULOSKELETAL: No joint effusion or tenderness. EXTRIMITY: No edema, no cyanosis or clubbing. PSYCH: Cooperative. Disposition: DC- TO HOME OR SELFCARE Time spent for discharge: 34 minutes Core Measure Documentation - Palliative Care Palliative Care/ Comfort Measures: Not Applicable - Core Measures Any of the following diagnoses?: none Exam - Constitutional Vitals: Temp Pulse Resp BP Pulse Ox 97.9 F 121 H 20 151/100 100 09/04/18 19:21 09/04/18 19:21 09/04/18 19:21 09/04/18 19:21 09/04/18 19:21 Plan Activity: advance as tolerated Weight Bearing Status: Weight Bear as Tolerated Diet: low fat Follow up with: JULIO ARAUJO [Other] - 3-5 Days Prescriptions: Quetiapine Fumarate [Seroquel Xr] 200 mg PO QHS #30 tab.er.24h Benztropine [Cogentin] 0.5 mg PO HS #30 tablet levETIRAcetam [Keppra] 750 mg PO BID 30 Days #1 vial
== END 2018-09-04 20:42 | disposition home or self-care (01) | DRG 101 ==
LOC: ED 07:30 → 4A 13:21
PROVIDERS: ADMIT Internal Medicine; ATTEND Internal Medicine
DX: G40.909 Epilepsy, unspecified, not intractable, without status epilepticus (principal); Z68.42 Body mass index [BMI] 45.0-49.9, adult; N39.0 Urinary tract infection, site not specified; E11.9 Type 2 diabetes mellitus without complications; F31.9 Bipolar disorder, unspecified; E78.5 Hyperlipidemia, unspecified; E66.9 Obesity, unspecified; N76.0 Acute vaginitis; F29 Unspecified psychosis not due to a substance or known physiological condition; Z79.4 Long term (current) use of insulin
CPT/HCPCS: 36415; 70450; 71046; 71275; 72125; 78582; 80048; 80053; 80164; 81001; 82962; 83036; 83735; 84484; 84702; 85025; 85027; 85379; 85610; 85730; 93005; 93010; 93306; 96365; 96372; G0378; A9270-GY; A9540; A9558; J1650; J1953; J7030; J7040; Q9967